=== PATIENT | female | born 1950 | race Caucasian/White ===

== ENCOUNTER 2021-11-15 12:22 | Outpatient (REF) | payer MEDICARE, OTHER, SELFPAY ==
[2021-11-15 14:35] LABS: Free T4 (Free Thyroxine) 0.85 ng/dL (0.71-1.85); Thyroid Stimulating Hormone 17.89 uIU/mL (0.32-4.0)
== END 2021-11-15 12:23 | disposition home or self-care (01) ==
LOC: HO.10HDL 12:22
PROVIDERS: Visit Provider Family Medicine
DX: E03.9 Hypothyroidism, unspecified (principal)
CPT/HCPCS: 36415; 84439; 84443

== ENCOUNTER 2022-08-21 14:08 | Outpatient (REF) | payer MEDICARE, OTHER, SELFPAY ==
--- NOTE | 2022-08-21 14:30 | ECG_ITS ---
Test Reason : Tachycardia Blood Pressure : / mmHG Vent. Rate : 081 BPM Atrial Rate : 081 BPM P-R Int : 176 ms QRS Dur : 144 ms QT Int : 404 ms P-R-T Axes : 049 -31 100 degrees QTc Int : 469 ms Normal sinus rhythm Left axis deviation Left bundle branch block Abnormal ECG No previous ECGs available Referred By: Erick Justin Electronically Signed By:EDGAR LAUREANO MD
== END 2022-08-21 14:09 | disposition home or self-care (01) ==
LOC: HO.LAB 14:08
PROVIDERS: PCP Family Medicine; Visit Provider Family Medicine
DX: R00.0 Tachycardia, unspecified (principal)
CPT/HCPCS: 93005